=== PATIENT | female | born 1975 | race African-American/Black ===

== ENCOUNTER 2019-10-01 07:13 | Emergency (ER) | payer OTHER ==
[~2019-10-01] VITALS: Ht 167.6 cm; Wt 113.0 kg
[2019-10-01] MEDS ORDERED: ALBUTEROL (0.083%) 2.5MG/3ML NEB HHN STA (08:15)
[2019-10-01] MEDS ORDERED: METHYLPREDNISOLONE SOD SUCC 125 MG/2 ML VIAL IV STA (08:15)
[2019-10-01] MEDS ORDERED: IPRATROPIUM BROMIDE (0.02%) 0.5MG/2.5ML NEB HHN STA (08:15)
[2019-10-01 08:52] LABS: HEMATOCRIT. 41.6 % (36.0-48.0); HEMOGLOBIN. 14.3 g/dL (12.0-16.0); MEAN CORPUSCULAR HEMOGLOBIN 29.2 pg (28.0-32.0); MEAN PLATELET VOLUME 7.9 fl (7.4-10.4); PLATELET 346 x1000/uL (130-400); RED BLOOD CELL COUNT 4.89 mill/uL (4.2-5.4); RED CELL DISTRIBUTION WIDTH 16.7 % (11.6-14.6)
[2019-10-01 08:59] LABS: CHLORIDE 102 mEq/L (98-107)
[2019-10-01 09:02] LABS: ETHANOL BLOOD < 10 mg/dL
[2019-10-01 09:28] LABS: HCG SCREEN NEGATIVE
[2019-10-01 09:44] LABS: CLARITY URINE CLOUDY (CLEAR); COLOR URINE YELLOW (YELLOW); KETONES URINE NEGATIVE (NEGATIVE); LEUKOCYTE ESTERASE URINE TRACE (NEGATIVE); NITRITE URINE POSITIVE (NEGATIVE); OCCULT BLOOD URINE 3+ (NEGATIVE); PH URINE 7.5 (4.5-8.0); PROTEIN URINE 1+ (NEGATIVE); SPECIFIC GRAVITY URINE 1.016 (1.005-1.030)
[2019-10-01 10:03] LABS: *AMPHETAMINES SCREEN URINE NEGATIVE (NEGATIVE); *BARBITURATES SCREEN URINE NEGATIVE (NEGATIVE); *BENZODIAZEPINES SCREEN URINE NEGATIVE (NEGATIVE)
[2019-10-01 10:04] LABS: METHADONE URINE SCREEN NEGATIVE (NEGATIVE); OPIATES URINE SCREEN NEGATIVE (NEGATIVE); PHENCYCLIDINE URINE SCREEN NEGATIVE (NEGATIVE)
[2019-10-01 10:16] LABS: PLATELET ESTIMATE NORMAL
[2019-10-01 10:40] LABS: *COCAINE SCREEN URINE PRESUMTIVE POSITIVE (NEGATIVE); CANNABINOID URINE SCREEN PRESUMTIVE POSITIVE (NEGATIVE)
[2019-10-01] MEDS ORDERED: CEFTRIAXONE 1 G PREMIX 50 ML IV NR (10:49)
[2019-10-02] MEDS ORDERED: ACETAMINOPHEN 325MG TABLET PO ONE (09:45)
[2019-10-02] MEDS ORDERED: GUAIFENESIN-DM 200MG-20MG/10ML UDC PO ONE (14:15)
[2019-10-02] MEDS ORDERED: CEFTRIAXONE SODIUM 1 G/VIAL IM NR (17:15)
[2019-10-02] MEDS ORDERED: ACETAMINOPHEN 325MG TABLET PO NR (17:15)
[2019-10-02] MEDS ORDERED: LORAZEPAM 1MG TABLET PO ONE ×2 (18:45→22:00)
[2019-10-03] MEDS ORDERED: DOPAMINE 400MG/250ML PREMIX 250 ML IV ONE (00:45)
[2019-10-03] MEDS ORDERED: OLANZAPINE 5MG TABLET ODT PO ONE ×2 (13:45→19:45)
[2019-10-03] MEDS ORDERED: LORAZEPAM 1MG TABLET PO ONE (13:45)
[2019-10-03] MEDS ORDERED: HALOPERIDOL LACTATE 5MG/ML VIAL IM ONE ×2 (19:58→20:00)
[2019-10-04] MEDS ORDERED: HALOPERIDOL LACTATE 5MG/ML VIAL IM NR (06:00)
[2019-10-04] MEDS ORDERED: KETOROLAC 30MG/ML VIAL IM NR (06:00)
[2019-10-04] MEDS ORDERED: CEPHALEXIN 250MG CAPSULE PO ONE (07:00)
[2019-10-04] MEDS: CEPHALEXIN 250MG CAPSULE PO SCH (09:36)
[2019-10-04] MEDS ORDERED: LORAZEPAM 2MG/ML CPJ IM ONE (12:30)
[2019-10-05] MEDS: CEPHALEXIN 250MG CAPSULE PO SCH (09:00)
[2019-10-05] MEDS ORDERED: LORAZEPAM 1MG TABLET PO ONE (14:00)
[2019-10-05 22:02] VITALS: BP 121/73
== END 2019-10-05 22:48 ==
LOC: EDBD 07:13 → ER 07:13
DX: J06.9 Acute upper respiratory infection, unspecified (principal); F32.9 Major depressive disorder, single episode, unspecified; N39.0 Urinary tract infection, site not specified; A59.9 Trichomoniasis, unspecified; N76.0 Acute vaginitis; F17.290 Nicotine dependence, other tobacco product, uncomplicated; F12.10 Cannabis abuse, uncomplicated; F14.10 Cocaine abuse, uncomplicated; J44.9 Chronic obstructive pulmonary disease, unspecified; I50.9 Heart failure, unspecified; Z88.2 Allergy status to sulfonamides; E16.2 Hypoglycemia, unspecified
CPT/HCPCS: 36415; 71045; 80053; 80305; 80320; 81003; 82962; 83880; 84484; 84703; 85025; 93005; 94640; 96365; 96366; 96372; 96375; 99285; J0696; J1630; J1885; J2060; J2930; J7611; Z7610; G0480

== ENCOUNTER 2021-05-30 19:27 | Emergency (ER) | payer OTHER ==
[~2021-05-30] VITALS: Ht 172.7 cm; Wt 116.0 kg
[2021-05-31] MEDS ORDERED: ONDANSETRON 4MG ODT PO ONE (00:30)
[2021-05-31] MEDS ORDERED: KETOROLAC 30MG/ML VIAL IV ONE (00:30)
[2021-05-31 00:33] LABS: BASOPHILS % 0.8 % (0.0-2.0); EOSINOPHILS % 0.8 % (0.0-5.0); HEMOGLOBIN. 12.2 g/dL (12.0-16.0); LYMPHOCYTES % 26.5 % (20.0-50.0); MEAN CORPUSCULAR HEMOGLOBIN 28.1 pg (28.0-32.0); MEAN CORPUSCULAR VOLUME 80.8 fL (81.0-99.0); MEAN PLATELET VOLUME 7.4 fl (7.4-10.4); MONOCYTES % 13.8 % (2.0-8.0); NEUTROPHILS % 58.1 % (40.0-76.0); PLATELET 403 x1000/uL (130-400); RED BLOOD CELL COUNT 4.33 mill/uL (4.2-5.4); RED CELL DISTRIBUTION WIDTH 16.8 % (11.6-14.6)
[2021-05-31 00:40] LABS: CHLORIDE 103 mEq/L (98-107)
[2021-05-31 00:44] LABS: ETHANOL BLOOD < 10 mg/dL
[2021-05-31 03:30] VITALS: BP 117/81
[2021-05-31 04:33] LABS: CLARITY URINE CLEAR (CLEAR); COLOR URINE YELLOW (YELLOW); KETONES URINE 3+ (NEGATIVE); LEUKOCYTE ESTERASE URINE NEGATIVE (NEGATIVE); NITRITE URINE NEGATIVE (NEGATIVE); OCCULT BLOOD URINE 2+ (NEGATIVE); PH URINE 5.5 (4.5-8.0); PROTEIN URINE NEGATIVE (NEGATIVE); SPECIFIC GRAVITY URINE 1.017 (1.005-1.030)
[2021-05-31 04:44] LABS: *BARBITURATES SCREEN URINE NEGATIVE (NEGATIVE); *BENZODIAZEPINES SCREEN URINE NEGATIVE (NEGATIVE); METHADONE URINE SCREEN NEGATIVE (NEGATIVE); OPIATES URINE SCREEN NEGATIVE (NEGATIVE)
[2021-05-31 04:45] LABS: PHENCYCLIDINE URINE SCREEN NEGATIVE (NEGATIVE)
[2021-05-31 04:47] LABS: *AMPHETAMINES SCREEN URINE PRESUMTIVE POSITIVE (NEGATIVE); *COCAINE SCREEN URINE PRESUMTIVE POSITIVE (NEGATIVE); CANNABINOID URINE SCREEN PRESUMTIVE POSITIVE (NEGATIVE)
== END 2021-05-31 07:15 | disposition home or self-care (01) ==
LOC: ER 19:27
DX: F15.10 Other stimulant abuse, uncomplicated (principal); F14.10 Cocaine abuse, uncomplicated; F12.10 Cannabis abuse, uncomplicated; S00.83XA Contusion of other part of head, initial encounter; X58.XXXA Exposure to other specified factors, initial encounter; Y93.89 Activity, other specified; Y92.89 Other specified places as the place of occurrence of the external cause; S06.0X9A Concussion with loss of consciousness of unspecified duration, initial encounter; R45.1 Restlessness and agitation; M79.7 Fibromyalgia; R94.31 Abnormal electrocardiogram [ECG] [EKG]
CPT/HCPCS: 36415; 80053; 80305; 80320; 81003; 83690; 85025; 93005; 96374; 99284; J1885; Q0162; G0480

== ENCOUNTER 2024-06-14 13:16 | Emergency (ER) | payer OTHER ==
[~2024-06-14] VITALS: Ht 162.6 cm; Wt 122.0 kg
[2024-06-14 13:30] VITALS: O2SAT 98
[2024-06-14] MEDS: ACETAMINOPHEN 325MG TABLET PO ONE (16:53)
[2024-06-14 21:29] LABS: BASOPHILS % 0.7 % (0.0-2.0); EOSINOPHILS % 0.1 % (0.0-5.0); HEMATOCRIT. 38.5 % (36.0-48.0); HEMOGLOBIN. 13.3 g/dL (12.0-16.0); LYMPHOCYTES % 22.4 % (20.0-50.0); MEAN CORPUSCULAR HEMOGLOBIN 29.8 pg (28.0-32.0); MEAN CORPUSCULAR HGB CONC 34.5 g/dL (31.0-37.0); MEAN CORPUSCULAR VOLUME 86.5 fL (81.0-99.0); MEAN PLATELET VOLUME 7.8 fl (7.4-10.4); MONOCYTES % 10.1 % (2.0-8.0); NEUTROPHILS % 66.7 % (40.0-76.0); PLATELET 329 x1000/uL (130-400); RED BLOOD CELL COUNT 4.45 mill/uL (4.2-5.4); RED CELL DISTRIBUTION WIDTH 17.8 % (11.6-14.6); WHITE BLOOD COUNT 10.4 x1000/uL (4.5-11.0)
[2024-06-14 21:38] LABS: CHLORIDE 108 mEq/L (98-107); POTASSIUM 3.3 mEq/L (3.5-5.1); SODIUM 139 mEq/L (136-145)
[2024-06-14 21:39] LABS: CALCIUM 9.4 mg/dL (8.7-10.4); CARBON DIOXIDE 24 mEq/L (21-32)
[2024-06-14 21:44] LABS: CREATININE 0.7 mg/dL (0.6-1.0); GLUCOSE 75 mg/dL (70-105); UREA NITROGEN BLOOD 7 mg/dL (9-23)
[2024-06-14 21:46] LABS: ACETAMINOPHEN < 2 ug/mL (10-30); ALANINE AMINOTRANSFERASE 12 IU/L (10-49); ALBUMIN 4.5 g/dL (3.2-4.8); ASPARTATE AMINOTRANSFERASE 22 IU/L (<34); BILIRUBIN DIRECT 0.4 mg/dL (<=3.0); BILIRUBIN TOTAL 1.2 mg/dL (0.1-1.0); PROTEIN TOTAL 7.7 g/dL (6.0-8.3)
[2024-06-14 22:04] LABS: ETHANOL BLOOD < 10 mg/dL (<10)
[2024-06-14 22:18] LABS: CLARITY URINE CLOUDY (CLEAR); COLOR URINE YELLOW (YELLOW); GLUCOSE URINE NEGATIVE (NEGATIVE); KETONES URINE 3+ (NEGATIVE); LEUKOCYTE ESTERASE URINE NEGATIVE (NEGATIVE); NITRITE URINE NEGATIVE (NEGATIVE); OCCULT BLOOD URINE 2+ (NEGATIVE); PH URINE 5.5 (4.5-8.0); PROTEIN URINE TRACE (NEGATIVE); UROBILINOGEN URINE 0.2 E.U./dL (0.2-1.0)
[2024-06-14] MEDS: FUROSEMIDE 40MG TABLET PO ONE (22:26)
[2024-06-14 22:32] LABS: *AMPHETAMINES SCREEN URINE NEGATIVE (NEGATIVE); *BARBITURATES SCREEN URINE NEGATIVE (NEGATIVE); *BENZODIAZEPINES SCREEN URINE NEGATIVE (NEGATIVE); *COCAINE SCREEN URINE PRESUMPTIVE POSITIVE (NEGATIVE); CANNABINOID URINE SCREEN PRESUMPTIVE POSITIVE (NEGATIVE); METHADONE URINE SCREEN NEGATIVE (NEGATIVE); OPIATES URINE SCREEN PRESUMPTIVE POSITIVE (NEGATIVE); PHENCYCLIDINE URINE SCREEN NEGATIVE (NEGATIVE)
[2024-06-14 22:33] LABS: ECSTASY MDMA SCREEN URINE NEGATIVE (NEGATIVE)
[2024-06-14 23:11] LABS: BACTERIA URINE TRACE; RBC URINE 0-2 /hpf (0-2); SQUAMOUS EPITHELIAL CELL URINE RARE /lpf (RARE/1+); WBC URINE 0-2 /hpf (0-2)
[2024-06-14] MEDS: ALBUTEROL 6.7GM HFA INHALER ORI PRN (23:20)
[2024-06-14] MEDS: LORAZEPAM 1MG TABLET PO ONE (23:20)
[2024-06-15] MEDS: GABAPENTIN 300MG CAPSULE PO SCH (07:43)
[2024-06-15] MEDS: SACUBITRIL/VALSARTAN 24MG/26MG TABLET PO SCH (09:41)
[2024-06-15] MEDS: ASPIRIN 81MG EC TABLET PO ONE (09:41)
[2024-06-15] MEDS: PANTOPRAZOLE 40MG DR TABLET PO ONE (09:42)
[2024-06-15] MEDS: METOPROLOL SUCCINATE 50MG ER TABLET PO SCH (09:42)
[2024-06-15] MEDS: LORAZEPAM 1MG TABLET PO ONE (15:00)
[2024-06-15 20:58] LABS: HCG SCREEN NEGATIVE
[2024-06-16] MEDS: LORAZEPAM 1MG TABLET PO ONE (17:54)
[2024-06-16] MEDS: FUROSEMIDE 40MG TABLET PO SCH (17:54)
[2024-06-16] MEDS ORDERED: FUROSEMIDE 40MG TABLET PO SCH (21:00)
[2024-06-16] MEDS: ACETAMINOPHEN 325MG TABLET PO ONE (23:15)
[2024-06-17 12:44] VITALS: BP 127/69; PULSE 81; RESP 16; TEMP 36.61404; O2SAT 98
== END 2024-06-17 13:06 | disposition home or self-care (01) ==
LOC: ER 13:16
DX: M79.642 Pain in left hand (principal); I11.0 Hypertensive heart disease with heart failure; I50.9 Heart failure, unspecified; F19.90 Other psychoactive substance use, unspecified, uncomplicated; F10.20 Alcohol dependence, uncomplicated; Z88.2 Allergy status to sulfonamides; Z20.822 Contact with and (suspected) exposure to COVID-19
CPT/HCPCS: 80076; 80305; 80048; 81003; 80307; 80320; 84703; 85025; 36415; 73080; 73090; 73130; 73140; 99285; 87426; Z7610 ×2; G0480